=== PATIENT | female | born 1960 | race Hispanic/Latino ===

== ENCOUNTER 2020-05-10 03:49 | Emergency (ER) | payer MEDICAID ==
--- OUTSIDE RECORDS SUMMARY | 2020-05-10 03:51 | XMS REPORT | Clinical Summary ---
:1960 Author Organization [facility] Dist[facility] ict Address [address] [place] [id number] Care Team Providers Name Role Phone Christi Leon Primary Care Provider Pcp Primary Care Provider Unavailable Allergies No Known Allergies Medications Medication Sig Dispensed Refills Start Date End Date Status ketoconazole (NIZORAL) Apply to affected 30 g 3 8 Active 2 % topical area 2 times creamIndications: Tinea daily. pedis of both feet hydrocortisone 2.5 % Apply to affected 28.35 g 0 08/20/2018 Active ointmentIndications: area 2 times Atopic dermatitis, daily. unspecified type levothyroxine Take 1 tablet by 90 tablet 2 09/06/2018 Active (SYNTHROID) 75 mcg mouth every tabletIndications: morning (before Hypothyroidism, breakfast). unspecified type triamcinolone acetonide Apply to affected 30 g 2 09/06/20 18 Active 0.5 % topical area 2 times creamIndications: daily. Medication refill desonide 0.05 % Apply to affected 15 g 0 10/03/2018 Active ointmentIndications: area 2 times Melanosis daily. Active Problems Problem Noted Date Hypothyroidism 06/30/2017 Psoriasis 06/30/2017 Decreased visual acuity 06/30/2017 Family History Medical History Relation Name Comments Other Mother Kidney problems Relation Name Status Comments Father Alive Mother Social History Tobacco Use Types Packs/Day Years Used Date Never Smoker Smokeless Tobacco: Never Used Tobacco Cessation: Counseling Given: No Alcohol Use Drinks/Week oz/Week Comments No Food Insecurity Answer Date Recorded Within the past 12 months, you worried that your food would Never true 06/30/2017 run out before you got money to buy more. Within the past 12 months, the food you bought just didn't N ever true 06/30/2017 last and you didn't have money to get more. Sex Assigned at Date Recorded Not on file Job Start Date Occupation Industry Not on file Not on file Not on file Travel History Travel Start Travel End No recent travel history available. Last Filed Vital Signs Not on file Plan of Treatment Health Maintenance Due Date Last Done Comments Breast Cancer Scrn (Yearly) 04/16/2019 04/16/2018 Colorectal Cancer Scrn Annual (FIT/FOBT) 10/17/2019 018, 07/04/2017 Age 50 to 75 Cervical Cancer Scrn (3 Yrs) 01/03/2020 01/03/2017 IMM Influenza Seasonal Aug to January (>/= 08/27/2020 19 yrs) Goals Goal Patient Goal Associated Recent Patient-Stated? Author Type Problems Progress Exercise Self management No Surapanen i, Regularly Sandra Bean MD Eat more fruits Self management No Selma paneni, and vegetables Sandra Bean MD Results Not on fileafter 05/10/2019 Insurance Payer Benefit Plan / Subscriber ID Effective Phone Address T ype Group Dates [facility] xxxxxxxxxxxx 2019-Prese [phone] [facility] CHOICE CHOICE nt [id number] [place] [address] [facility] SELF-PAY SELF-PAY xxxxxxx 2020-09/29 [phone] [place] [address]
--- OUTSIDE RECORDS SUMMARY | 2020-05-10 03:52 | XMS REPORT | Continuity of Care Document ---
:1960 Author Organization [facility] t Address [address] [place] [address] Care Team Providers Name Role Phone Angelique Betancourt Primary Care Physician Problems Condition Condition Condition Status Onset Resolution Last Treating Co mments Source Name Details Category Date Date Treatment Clinician Date Hypothyroi Hypothyroi Disease Active H arris dism dism 06-30 Health 00:00: 00 Psoriasis Psoriasis Disease Active Skip ris 8-04 Health 00:00: 00 Decreased Decreased Disease Active Skip ris visual visual 04 Health acuity acuity 00:00: 00 Allergies, Adverse Reactions, Alerts This patient has no known allergies or adverse reactions. Family History Family Member Diagnosis Comments Start Date Stop Date Source Natural mother Other [facility] Social History Social Habit Start Date Stop Date Quantity Comments Source Sex Assigned At [facility] Alcohol intake 2019-05-01 2019-05-01 [facility] 00:00:00 00:00:00 History [employer] Food 2017-06-30 2017-06-30 1 [facility] Worry 00:00:00 00:00:00 History [facility] Food 2017-06-30 2017-06-30 1 [facility] Scarcity 00:00:00 00:00:00 Smoking Status Start Date Stop Date Source Never smoker [facility] Medications Ordered Filled Start Stop Current Ordering Indication Dosage Frequency Signature Comments Components Source Medication Medication Date Date Medication? Clinician (SIG) Name Name desonide 2017-11 Yes Melanosis Q.5D Apply to [place] 0.05 % 1-07 [facility] Health ointment 00:00: area 2 00 times daily. levothyroxi 2018-1 Yes Hypothyroid 75ug QD Take 1 [place] ne 0-11 ism, tablet by [facility] (SYNTHROID) 00:00: unspecified mouth 75 mcg 00 type every tablet morning (before breakfast) . triamcinolo 2017-11 Yes Medication Q.5D Apply to [place] ne 0-11 refill affected Health acetonide 00:00: area 2 0.5 % 00 times topical daily. cream hydrocortis Yes Atopic Q.5D Apply to [place] one 2.5 % 9-24 dermatitis, affected Health ointment 00:00: unspecified area 2 00 type times daily. ketoconazol Yes Tinea pedis Q.5D Apply to [place] e (NIZORAL) 7-19 of both affected H ealth 2 % topical 00:00: feet area 2 cream 00 times daily. Procedures This patient has no known procedures. Plan of Care Planned Activity Planned Date Details Comments Source Future Scheduled Test 2020-08-27 00:00:00 IMM Influenza Seasonal [facility] Aug to January (>/= 19 yrs) [code = IMM Influenza Seasonal Aug to January (>/= 19 yrs)] Future Scheduled Test 2020-01-03 00:00:[address] [facility] (3 Yrs) [code = Cervical Cancer Scrn (3 Yrs)] Future Scheduled Test 2019-10-17 00:00:[address] [facility] Annual (FIT/FOBT) Age 50 to 75 [code = Colorectal Cancer Scrn Annual (FIT/FOBT) Age 50 to 75] Future Scheduled Test 2019-04-16 00:00:[address] [facility] (Yearly) [code = Breast Cancer Scrn (Yearly)] Encounters Start End Encounter Admission Attending Care Care Encounter Source Date/Time Date/Time Type Type Clinicians Facility Department ID 2018-11-02 2018-11-02 Outpatient [facility] [id number] [place] 00:00:00 00:00:00 Health 2018-11-01 2018-11-01 Outpatient [facility] [id number] [place] 00:00:00 00:00:00 Health 2018-10-23 2018-10-23 Outpatient [facility] [id number] [place] 00:00:00 00:00:00 Health 2018-10-17 2018-10-17 Outpatient [facility] [id number] [place] 10:48:11 10:48:11 Health 2018-10-16 2018-10-16 Outpatient [facility] [id number] [place] 00:00:00 00:00:00 [facility] 2018-10-03 2018-10-03 Outpatient [facility] [id number] [place] 13:24:41 13:24:41 [facility] 2018-09-06 2018-09-06 Outpatient [facility] [id number] [place] 15:06:51 15:06:51 [facility] 2018-08-30 2018-08-30 Outpatient [facility] [id number] [place] 10:26:25 10:26:25 [facility] 2018-08-20 2018-08-20 Outpatient [facility] [id number] [place] 16:08:19 16:08:19 [facility] 2018-08-09 2018-08-09 Outpatient [facility] [id number] [place] 00:00:00 00:00:00 [facility] 2018-07-26 2018-07-26 Outpatient [facility] [id number] [place] 00:00:00 00:00:00 [facility] 2018-07-04 2018-07-04 Outpatient [facility] [id number] [place] 00:00:00 00:00:00 [facility] 2018-06-14 2018-06-14 Outpatient [facility] [id number] [place] 10:38:13 10:38:13 [facility] 2018-05-21 2018-05-21 Outpatient [facility] [id number] [place] 12:25:22 12:25:22 [facility] 2018-05-21 2018-05-21 Outpatient [facility] [id number] [place] 10:51:49 10:51:49 [facility] 2018-05-17 2018-05-17 Outpatient [facility] [id number] [place] 13:16:31 13:16:31 [facility] 2018-05-02 2018-05-02 Outpatient [facility] [id number] [place] 08:55:45 08:55:45 [facility] 2018-05-02 2018-05-02 Outpatient [facility] [id number] [place] 08:55:33 08:55:33 [facility] 2018-04-16 2018-04-16 Outpatient [facility] [id number] [place] 11:20:39 11:20:39 [facility] 2018-04-16 2018-04-16 Outpatient [facility] [id number] [place] 00:00:00 00:00:00 [facility] 2018-04-06 2018-04-06 Outpatient [facility] [id number] [place] 14:02:47 14:02:47 [facility] 2018-04-04 2018-04-04 Outpatient [facility] [id number] [place] 00:00:00 00:00:00 [facility] 2018-04-04 2018-04-04 Outpatient [facility] [id number] [place] 00:00:00 00:00:00 [facility] 2018-03-27 2018-03-27 Outpatient [facility] [id number] [place] 10:14:29 10:14:29 [facility] 2018-03-20 2018-03-20 Outpatient [facility] [id number] [place] 00:00:00 00:00:00 [facility] 2018-03-19 2018-03-19 Outpatient [facility] [id number] [place] 14:51:18 14:51:18 [facility] 2018-03-07 2018-03-07 Outpatient [facility] [id number] [place] 09:19:30 09:19:30 [facility] 2018-02-23 2018-02-23 Outpatient [facility] [id number] [place] 00:00:00 00:00:00 [facility] 2018-02-21 2018-02-21 Outpatient [facility] [id number] [place] 00:00:00 00:00:00 [facility] 2018-02-14 2018-02-14 Outpatient [facility] [id number] [place] 09:16:12 09:16:12 [facility] 2018-02-07 2018-02-07 Outpatient [facility] [id number] [place] 00:00:00 00:00:00 [facility] 2018-01-24 2018-01-24 Outpatient [facility] [id number] [place] 10:04:13 10:04:13 [facility] 2017-12-20 2017-12-20 Outpatient [facility] [id number] [place] 11:13:06 11:13:06 [facility] 2017-12-18 2017-12-18 Outpatient [facility] [id number] [place] 09:00:46 09:00:46 [facility] 2017-12-15 2017-12-15 Outpatient [facility] [id number] [place] 09:24:13 09:24:13 [facility] 2017-12-13 2017-12-13 Outpatient [facility] [id number] [place] 00:00:00 00:00:00 [facility] 2017-11-29 2017-11-29 Outpatient [facility] [id number] [place] 00:00:00 00:00:00 [facility] 2017-11-24 2017-11-24 Outpatient [facility] [id number] [place] 00:00:00 00:00:00 [facility] 2017-11-23 2017-11-23 Outpatient [facility] [id number] [place] 08:36:47 08:36:47 [facility] 2017-11-16 2017-11-16 Outpatient [facility] [id number] [place] 13:41:30 13:41:30 Health 2017-10-18 2017-10-18 Outpatient [facility] [id number] [place] 09:40:45 09:40:45 Health 2017-10-12 2017-10-12 Outpatient [facility] [id number] [place] 07:58:46 07:58:46 Health 2017-09-13 2017-09-13 Outpatient [facility] [id number] [place] 08:56:55 08:56:55 Health 2017-08-10 2017-08-10 Outpatient [facility] [id number] [place] 09:00:47 09:00:47 Health Results Test Description Test Time Test Comments Results Result Sourc e Comments BREAST ULTRASOUND 2019-01-02 - DIAG MAMM BILATERAL BILATERAL 11:54:12 DON CAD DIGITALBILATERAL DIGITAL DIAGNOSTIC MAMMOGRAM 3D/2D WITH CAD: 01/02/2019CLINICAL: Burning sensation. Digital breast tomosynthesis was performed in addition to routine CC and MLO views. Current mammographic images were evaluated by either a Packet Digital-Vu or an Genasys version 7.2 computer aided detection system. Comparison is made to exams dated 01/10/2017 mammogram, 11/03/2014 mammogram, and 07/13/2012 mammogram - [facility]. The tissue of both breasts is heterogeneously dense. This may lower the sensitivity of mammography. No suspicious mass, architectural distortion, malignant type calcification, or lymph node abnormality detected. A stable focal asymmetries noted on the right.INCOMPLETE ASSESSMENT: ADDITIONAL IMAGING EVALUATION RECOMMENDEDFurther evaluation is pending; breast ultrasound to be performed today. - BREAST ULTRASOUND BILATERALULTRASOUND OF BOTH BREASTS AND BOTH AXILLA: 01/02/2019Comparison is made to exams dated 01/10/2017 mammogram, 11/03/2014 mammogram, and 07/13/2012 mammogram - [facility]. Real-time ultrasound of both breasts and both axilla was performed. No abnormalities were seen sonographically in either breast or either axilla. IMPRESSION: NEGATIVE There is no sonographic evidence of malignancy. Resume annual screening mammography in one year. Clinical follow-up is also recommended, and further management of breast pain should be based on the results of clinical evaluation.Opal Langford M.D. cc/:01/02/2019 11:54:12 Entry: cc - 01/04/2019 11:36:20Imaging Technologist: Amy Cheung, [facility]: BIRADS 1-2 Combo FU Letter Mammogram BI-RADS: 0 Indeterminate Ultrasound BI-RADS: 1 Negative DIAG MAMM 2019-01-02 - DIAG MAMM BILATERAL BILATERAL DON 11:54:12 DON CAD CAD DIGITAL DIGITALBILATERAL DIGITAL DIAGNOSTIC MAMMOGRAM 3D/2D WITH CAD: 01/02/2019CLINICAL: Burning sensation. Digital breast tomosynthesis was performed in addition to routine CC and MLO views. Current mammographic images were evaluated by either a Packet Digital-[employer]Passage or an Genasys version 7.2 computer aided detection system. Comparison is made to exams dated 01/10/2017 mammogram, 11/03/2014 mammogram, and [facility]13/[facility]. The tissue of both breasts is heterogeneously dense. This may lower the sensitivity of mammography. No suspicious mass, architectural distortion, malignant type calcification, or lymph node abnormality detected. A stable focal asymmetries noted on the right.INCOMPLETE ASSESSMENT: ADDITIONAL IMAGING EVALUATION RECOMMENDEDFurther evaluation is pending; breast ultrasound to be performed today. - BREAST ULTRASOUND BILATERALULTRASOUND OF BOTH BREASTS AND BOTH AXILLA: 01/02/2019Comparison is made to exams dated 01/10/2017 mammogram, 11/03/2014 mammogram, and 07[facility]13/2012 [facility]. Real-time ultrasound of both breasts and both axilla was performed. No abnormalities were seen sonographically in either breast or either axilla. IMPRESSION: NEGATIVE There is no sonographic evidence of malignancy. Resume annual screening mammography in one year. Clinical follow-up is also recommended, and further management of breast pain should be based on the results of clinical evaluation.Opal Langford M.D. cc/:01/02/2019 11:54:12 Entry: - 01/04/2019 11:36:20Imaging Technologist: Amy Cheung, [facility]: BIRADS 1-2 Combo FU Letter Mammogram BI-RADS: 0 Indeterminate Ultrasound BI-RADS: 1 Negative
[2020-05-10] MEDS ORDERED: IBUPROFEN 200 MG TAB PO ONE (05:48)
[2020-05-10] MEDS ORDERED: IBUPROFEN 400 MG TAB ONE (05:49)
--- NOTE | 2020-05-10 05:49 | ER ---
Nurse's Notes [facility] Name: Aislinn Price Age: 59 yrs Sex: Female : 1960 Arrival Date: 05/10/2020 Time: 03:50 Bed 5 Private MD: Diagnosis: Contusion of unspecified part of head;Laceration without foreign body of other part of head Presentation: 05/10 03:45 Chief complaint: EMS states: [place] slipped [place], lacerated wound at the back of the head sustained. no LOC, no Nausea or vomiting. 03:45 Coronavirus screen: Proceed with normal triage. Ebola Screen: Patient negative for rr5 fever greater than or equal to 101.5 degrees Fahrenheit, and additional compatible Ebola Virus Disease symptoms Patient denies exposure to infectious person. Patient denies travel to an Ebola-affected area in the 21 days before illness onset. Mechanism of Injury: resulted from a fall, slipped. Initial Sepsis Screen: Does the patient meet any 2 criteria? No. Patient's initial sepsis screen is negative. Does the patient have a suspected source of infection? No. Patient's initial sepsis screen is negative. Risk Assessment: Do you want to hurt yourself or someone else? Patient reports no desire to harm self or others. Onset of symptoms was May 10, 2020. 03:45 Method Of Arrival: EMS: [facility] rr5 03:45 Acuity: MIGUEL 3 rr5 Triage Assessment: 03:50 Neuro: Reports pain. rr5 Historical: - Allergies: 03:54 No Known Allergies; rr5 - Home Meds: 03:54 cannot recall the names of medications [Active]; rr5 - PMHx: 03:54 Thyroid problem; rr5 - Immunization history:: Adult Immunizations up to date, Last tetanus immunization: > 10 years ago. - Social history:: Smoking status: unknown Patient/guardian denies using alcohol, street drugs, tobacco products. Screenin:54 Abuse screen: Denies threats or abuse. Denies injuries from another. Nutritional rr5 screening: No deficits noted. Tuberculosis screening: No symptoms or risk factors identified. Fall Risk Fall in past 12 months (25 points). Total Cee Fall Scale indicates Low Risk Score (25-44 pts). Fall prevention measures have been instituted. Side Rails Up X 2 Placed close to Nursing Station Frequent Obs/Assesments occuring As available Patient and Family Educated on Fall Prevention Program and strategies. Assessment: 03:55 General: Appears in no apparent distress. comfortable, Behavior is calm, cooperative, rr5 appropriate for age. Pain: Complains of pain in scalp Pain does not radiate. Pain currently is 6 out of 10 on a pain scale. Quality of pain is described as aching, Pain began suddenly, Is intermittent. Neuro: Level of Consciousness is awake, alert, obeys commands, Oriented to person, place, time, situation, Appropriate for age Denies dizziness, no LOC. Cardiovascular: Capillary refill < 3 seconds Patient's skin is warm and dry. Respiratory: Airway is patent Respiratory effort is even, unlabored, Respiratory pattern is regular, symmetrical. GI: No signs and/or symptoms were reported involving the gastrointestinal system. Patient currently denies nausea, vomiting. : No signs and/or symptoms were reported regarding the genitourinary system. EENT: No signs and/or symptoms were reported regarding the EENT system. Derm: Skin is intact, is healthy with good turgor, Skin temperature is warm Wound noted scalp Wound is lacerated wound. Musculoskeletal: Circulation, motion, and sensation intact. Capillary refill < 3 seconds. 05:00 Reassessment: Patient appears in no apparent distress at this time. No changes from rr5 previously documented assessment. Patient is alert, oriented x 3, equal unlabored respirations, skin warm/dry/pink. awaiting for results. 05:53 Reassessment: Patient and/or family updated on plan of care and expected duration. Pain ea level reassessed. Patient is alert, oriented x 3, equal unlabored respirations, skin warm/dry/pink. Discharge instruction given to patient, verbalized the understanding of instruction. Pt left ED ambulatory accompanied by significant other. Vital Signs: 03:45 BP 154 / 113; Pulse 69; Resp 19; Temp 98.6; Pulse Ox 99% ; Weight 72.57 kg; Height 5 rr5 ft. 3 in. (160.02 cm); Pain 6/10; 05:00 BP 135 / 77; Pulse 70; Resp 18; Pulse Ox 98% ; rr5 03:45 Body Mass Index 28.34 (72.57 kg, 160.02 cm) rr5 Oscar Coma Score: 03:45 Eye Response: spontaneous(4). Verbal Response: oriented(5). Motor Response: obeys rr5 commands(6). Total: 15. 05:22 Eye Response: spontaneous(4). Verbal Response: oriented(5). Motor Response: obeys tw4 commands(6). Total: 15. 05:22 Eye Response: spontaneous(4). Verbal Response: oriented(5). Motor Response: obeys tw4 commands(6). Total: 15. ED Course: 03:50 Patient arrived in ED. ds1 03:50 Yang Grimm, RN is Primary Nurse. rr5 03:50 Arm band placed on right wrist. rr5 03:53 Triage completed. rr5 03:55 Filiberto Gonzalez MD is Attending Physician. tw4 03:56 Patient has correct armband on for positive identification. Bed in low position. Call rr5 light in reach. Pulse ox on. NIBP on. 04:37 CT Head C Spine In Process Unspecified. EDMS 05:38 Assist provider with laceration repair on scalp that was between 2.6 to 7.5 cm using ea angelica. Set up tray. Performed by Filiberto Gonzalez MD Dressed with Neosporin, Patient tolerated well. 05:45 Patient did not have IV access during this emergency room visit. ea Administered Medications: 05:43 Drug: Motrin 600 mg Route: PO; ea 05:43 Follow up: Response: Medication administered at discharge. ea Outcome: 05:49 Discharge ordered by . tw4 05:54 Discharged to home ambulatory, with significant other. ea 05:54 Condition: stable 05:54 Discharge instructions given to patient, Instructed on discharge instructions, follow up and referral plans. Demonstrated understanding of instructions, follow-up care. 05:54 Patient left the ED. ea Signatures: Dispatcher [employer] EDMI [place] ds1 Peace Zavala, RN Filiberto Sr ea, MD MD tw4 Yang Grimm, RN RN rr5
--- NOTE | 2020-05-10 05:49 | EDPHYS ---
Physician Documentation [facility] Name: Aislinn Price Age: 59 yrs Sex: Female : 1960 Arrival Date: 05/10/2020 Time: 03:50 Bed 5 Private MD: ED Physician Filiberto Gonzalez HPI: 05/10 05:22 This 59 yrs old Female presents to ER via EMS with complaints of Head tw4 Injury-Adult. 05:22 The patient or guardian reports pain. The complaints affect the right occipital area. tw4 Context of injury: The problem was sustained at home. Onset: The symptoms/episode began/occurred today. Associated signs and symptoms: Loss of consciousness: This patient did not experience any loss of consciousness. Severity of symptoms: At their worst the symptoms were mild, in the emergency department the symptoms have improved. The patient has not experienced similar symptoms in the past. Historical: - Allergies: 03:54 No Known Allergies; rr5 - Home Meds: 03:54 cannot recall the names of medications [Active]; rr5 - PMHx: 03:54 Thyroid problem; rr5 - Immunization history:: Adult Immunizations up to date, Last tetanus immunization: > 10 years ago. - Social history:: Smoking status: unknown Patient/guardian denies using alcohol, street drugs, tobacco products. ROS: 05:22 Constitutional: Negative for fever, chills, and weight loss, Eyes: Negative for injury, tw4 pain, redness, and discharge, Cardiovascular: Negative for chest pain, palpitations, and edema, Respiratory: Negative for shortness of breath, cough, wheezing, and pleuritic chest pain, Abdomen/GI: Negative for abdominal pain, nausea, vomiting, diarrhea, and constipation, MS/Extremity: Negative for injury and deformity, Skin: Negative for injury, rash, and discoloration. Exam: 05:22 Constitutional: This is a well developed, well nourished patient who is awake, alert, tw4 and in no acute distress. 05:22 Cardiovascular: Regular rate and rhythm with a normal S1 and S2. No gallops, murmurs, or rubs. Normal PMI, no JVD. No pulse deficits. Respiratory: Lungs have equal breath sounds bilaterally, clear to auscultation and percussion. No rales, rhonchi or wheezes noted. No increased work of breathing, no retractions or nasal flaring. Abdomen/GI: Soft, non-tender, with normal bowel sounds. No distension or tympany. No guarding or rebound. No evidence of tenderness throughout. Back: No spinal tenderness. No costovertebral tenderness. Full range of motion. 05:22 Head/face: Noted is abrasion(s), that are moderate, of the right side of the back of head and right occipital area, contusion, that is deep, a laceration(s), that is superficial, 2 cm(s). 05:26 Head/face: Noted is a laceration(s), that is jagged. tw4 Vital Signs: 03:45 BP 154 / 113; Pulse 69; Resp 19; Temp 98.6; Pulse Ox 99% ; Weight 72.57 kg; Height 5 rr5 ft. 3 in. (160.02 cm); Pain 6/10; 05:00 BP 135 / 77; Pulse 70; Resp 18; Pulse Ox 98% ; rr5 03:45 Body Mass Index 28.34 (72.57 kg, 160.02 cm) rr5 Oscar Coma Score: 03:45 Eye Response: spontaneous(4). Verbal Response: oriented(5). Motor Response: obeys rr5 commands(6). Total: 15. 05:22 Eye Response: spontaneous(4). Verbal Response: oriented(5). Motor Response: obeys tw4 commands(6). Total: 15. 05:22 Eye Response: spontaneous(4). Verbal Response: oriented(5). Motor Response: obeys tw4 commands(6). Total: 15. MDM: 03:55 Patient medically screened. tw4 05:22 Differential diagnosis: Contusion of Hematoma on Intracranial bleed- Concussion. Data tw4 reviewed: vital signs, nurses notes, radiologic studies, CT scan. Counseling: I had a detailed discussion with the patient and/or guardian regarding: the historical points, exam findings, and any diagnostic results supporting the discharge/admit diagnosis, radiology results. Special discussion: Based on the patient's history, exam and DX evaluation, there is no indication for emergent intervention or inpatient TX. It is understood by the patient/guardian that if the SXs persist or worsen they need to return immediately for re-evaluation. I discussed with the patient/guardian in detail that at this point there is no indication for admission to the hospital. It is understood, however, that if the symptoms persist or worsen the patient needs to return immediately for re-evaluation. 05/10 04:04 Order name: CT Head C Spine ea Administered Medications: 05:43 Drug: Motrin 600 mg Route: PO; ea 05:43 Follow up: Response: Medication administered at discharge. ea Disposition: 05/10/20 05:49 Discharged to Home. Impression: Contusion of unspecified part of head, Laceration without foreign body of other part of head. - Condition is Stable. - Discharge Instructions: Contusion, Head Injury, Adult, [id number]. - Prescriptions for Ibuprofen 600 mg Oral Tablet - take 1 tablet by ORAL route every 6 hours As needed take with food; 30 tablet. - Medication Reconciliation Form, Thank You Letter, Antibiotic Education, Prescription Opioid Use form. - Follow up: Private Physician; When: Upon discharge from the Emergency Department; Reason: Recheck today's complaints, Continuance of care, Re-evaluation by your physician. - Problem is new. - Symptoms have improved. Signatures: Dispatcher [employer] [facility] Peace Zavala RN RN Filiberto Hanson MD MD tw4 Yang Grimm RN RN rr5 Corrections: (The following items were deleted from the chart) 04:29 04:10 Head Brain Wo Cont+CT.RAD.BRZ ordered. [facility] EDUT 05:54 05:49 05/10/2020 05:49 Discharged to Home. Impression: Contusion of unspecified part of ea head; Laceration without foreign body of other part of head. Condition is Stable. Forms are Medication Reconciliation Form, Thank You Letter, Antibiotic Education, Prescription Opioid Use. Follow up: Private Physician; When: Upon discharge from the Emergency Department; Reason: Recheck today's complaints, Continuance of care, Re-evaluation by your physician. Problem is new. Symptoms have improved. tw4
[2020-05-10 06:03] VITALS: BP 135/77; O2SAT 98
--- NOTE | 2020-05-11 10:59 | RAD REPORT ---
EXAM DESCRIPTION: CT - [id number] - 05/10/2020 5:38 am CLINICAL HISTORY: PAIN COMPARISON: None. TECHNIQUE: CT Head and Cervical spine WO contrast on 05/10/2020 4:04 AM CDT This exam was performed according to our departmental dose-optimization program, which includes autom ated exposure control, adjustment of the mA and/or kV according to patient size and/or use of iterati ve reconstruction technique. FINDINGS: Brain: There is no acute hemorrhage, mass effect or midline shift. Gracia-white differentiat ion is preserved. There is no hydrocephalus. There is no significant volume loss for age. There is a right parietal scalp contusion. The calvarium is intact. Orbits and globes are unremarkable. The paranasal sinuses are clear. Mastoid air cells are clear. Cervical Spine: There is no acute fracture. Alignment is anatomic. Disc spaces are maintained. Vertebral body heights are preserved. Soft tissues are unremarkable. IMPRESSION: No acute hemorrhage. No posttraumatic findings at cervical spine. Electronically signed by: Surjit Elmore MD 05/10/2020 4:42 AM CDT Due to temporary technical issues with the PACS/Fluency reporting system, reports are being signed by the in house radiologist without review as a courtesy to ensure prompt reporting. The interpreting r adiologist is fully responsible for the content of the report.
== END 2020-05-10 05:54 | disposition home or self-care (01) ==
LOC: ER 03:49
PROC: 0JQ00ZZ Repair Scalp Subcutaneous Tissue and Fascia, Open Approach (ICD-10-PCS; principal; 2020-05-10)
DX: S01.81XA Laceration without foreign body of other part of head, initial encounter (principal); W01.118A Fall on same level from slipping, tripping and stumbling with subsequent striking against other sharp object, initial encounter; Y93.01 Activity, walking, marching and hiking; Y92.832 Beach as the place of occurrence of the external cause; E07.9 Disorder of thyroid, unspecified
CPT/HCPCS: 70450; 72125; 99284